=== PATIENT | male | born 1955 | race Caucasian/White ===

== ENCOUNTER 2023-02-26 09:22 | Emergency (ER) | payer OTHER, SELFPAY ==
[2023-02-26] MEDS ORDERED: NA CHLORIDE 0.9% 1,000 ML IV ONE (09:23)
[2023-02-26] MEDS ORDERED: ROCURONIUM 50 MG/5 ML VIAL IV ONE (09:23)
[2023-02-26] MEDS ORDERED: EPINEPHrine 1 MG/10 ML SYR IV ONE (09:23)
[2023-02-26] MEDS ORDERED: SUCCINYLCHOLINE 20 MG/ML (10 ML) IV ONE (09:23)
[2023-02-26] MEDS ORDERED: ETOMIDATE 20 MG/10 ML VIAL IV ONE (09:23)
[2023-02-26] MEDS ORDERED: NA CHLORIDE 0.9% 500 ML IV ONE (09:23)
[2023-02-26] MEDS ORDERED: DIAZEPAM 10 MG/2 ML INJ SYRINGE ONE (09:59)
[2023-02-26] MEDS ORDERED: NA CHLORIDE 0.9% 1,000 ML ONE (10:00)
[2023-02-26] MEDS ORDERED: MORPHINE 4 MG/ML SYR ONE (10:00)
[2023-02-26] MEDS ORDERED: KETOROLAC 30 MG/ML INJ ONE (10:00)
[2023-02-26 10:08] LABS: Absolute Lymphocytes (CBC) 2.2 K/uL (0.7-4.9); Hematocrit 47.5 % (39.6-49.0); Lymphocytes % 11.3 % (15.3-44.8); MCV 101.4 fL (80-100); MPV 8.2 fL (7.6-11.3); Platelets 197 thou/uL (152-406); RBC Red Blood Cell Count 4.69 M/uL (4.33-5.43)
[2023-02-26 10:25] LABS: Albumin 3.7 g/dL (3.4-5.0); Bilirubin Total 0.7 mg/dL (0.2-1.0); Potassium 4.1 mEq/L (3.5-5.1); Protein, Total 7.7 g/dL (6.4-8.2)
--- NOTE | 2023-02-26 10:27 | RAD REPORT ---
EXAM DESCRIPTION: CT - Abdomen Pelvis Wo Contrast - 02/26/2023 10:15 am CLINICAL HISTORY: Abdominal pain. right lower back pain COMPARISON: No comparisons TECHNIQUE: CT imaging of the abdomen and pelvis was performed without contrast. Solid organ, bowel a nd vascular assessment is limited due to lack of IV and oral contrast. All CT scans are performed using dose optimization technique as appropriate and may include automated exposure control or mA/KV adjustment according to patient size. FINDINGS: The lower lung lion are clear. The liver, spleen, pancreas, adrenal glands and kidneys are within normal limits for a limited non-co ntrast examination.19 mm benign cyst right kidney. There is extremely large infrarenal abdominal aortic aneurysm present measuring 13 cm in craniocaudad dimension and 11.2 cm in transverse dimension. There is internal crescentic hyperdensity as well as hyperdense material surrounding the aneurysm with adjacent fat stranding. No bowel obstruction, free air, free fluid or abscess. The appendix is normal. The osseous structures are within normal limits. IMPRESSION: Extremely large (13 x 11 cm) infrarenal abdominal aortic aneurysm is present with eviden ce of perianeurysmal leakage. The findings were discussed with Dr. Marshall in the ER On 02/26/2023 at 10:20 a.m. by telephone. A limited non-contrast examination was performed as detailed.
[2023-02-26] MEDS ORDERED: ESMOLOL HCL 0 ML IV ONE (10:31)
--- NOTE | 2023-02-26 10:32 | EDPHYS ---
Physician Documentation [facility] Name: Chester Green Age: 67 yrs Sex: Male : 1955 Arrival Date: 02/26/2023 Time: 09:22 Bed 19 Private MD: ED Physician Sukhdev Marshall HPI: 02/26 10:11 This 67 yrs old Male presents to ER via Ambulatory with complaints of Back Pain. ms3 10:11 67-year-old male with no past medical history presents to the emergency department for ms3 1 week of right lower back pain. Patient describes the pain as stabbing/throbbing and rates the pain a 10/10. Patient states the pain mildly radiates to his right leg. Patient states he has previously had back pain years ago. Patient denies urinary or bladder incontinence, weakness, numbness, fever, vomiting. Patient endorses nausea. Historical: - Allergies: 09:38 No Known Allergies; iw - Home Meds: 09:38 None [Active]; iw - PMHx: 09:38 None; iw - PSHx: 09:38 knee; iw - Immunization history:: Adult Immunizations not up to date. - Social history:: Smoking status: Patient reports the use of cigarette tobacco products, smokes one pack cigarettes per day. ROS: 10:11 Constitutional: Negative for fever, and chills. Neck: Negative for injury, pain, and ms3 swelling, Cardiovascular: Negative for chest pain, and palpitations. Respiratory: Negative for shortness of breath, cough, wheezing, and pleuritic chest pain, Abdomen/GI: Negative for abdominal pain, nausea, vomiting, diarrhea, and constipation, 10:11 Back: Positive for Back pain, 10:11 All other systems are negative, Exam: 10:11 Constitutional: This is a well developed, well nourished patient who is awake, alert, ms3 and in no acute distress. Head/Face: Normocephalic, atraumatic. Neck: Trachea midline, no cervical lymphadenopathy. Supple, full range of motion without nuchal rigidity, or vertebral point tenderness. No Meningismus. Chest/axilla: Normal chest wall appearance and motion. Nontender with no deformity. Cardiovascular: Regular rate and rhythm with a normal S1 and S2. No gallops, murmurs, or rubs. Normal PMI, no JVD. No pulse deficits. Respiratory: Lungs have equal breath sounds bilaterally, clear to auscultation and percussion. No rales, rhonchi or wheezes noted. No increased work of breathing, no retractions or nasal flaring. Abdomen/GI: Soft, non-tender, with normal bowel sounds. No distension or tympany. No guarding or rebound. No evidence of tenderness throughout. Skin: Warm, dry with normal turgor. Normal color with no rashes, no lesions, and no evidence of cellulitis. 10:11 Back: pain, that is severe, of the right low back, Vital Signs: 10:00 BP 108 / 60; Pulse 114; Resp 20 S; Pulse Ox 95% on R/A; iw 10:32 Weight 83.91 kg; cp4 11:01 BP 81 / 44; Pulse 118; iw Procedures: 10:45 Intubation: Ventilated with 100% NRB prior to procedure. Intubated orally using ms3 Glidescope 4 with 7.0 mm ETT. Successful on second attempt. Ventilated with Ambu bag. Tube secured with ETT ahn Placement verified by CO2 detector with (+) color change, auscultating bilateral breath sounds. 16:29 Central Line: the site was prepped with in sterile fashion, a triple lumen catheter was gb1 inserted, in the right femoral vein, in 1 attempts. placement was verified, by blood return, the site was dressed with Tegaderm, using sterile technique, the patient tolerated the procedure, well. MDM: 09:45 Patient medically screened. ms3 10:11 Differential diagnosis: Neoplasm sprain, vertebral fracture. ms3 10:31 Data reviewed: vital signs, nurses notes, radiologic studies, CT scan, and as a result, ms3 I will transfer patient. Consideration of Admission/Observation Will transfer patient. I considered the following discharge prescriptions or medication management in the emergency department Medications were administered in the Emergency Department. See MAR. Independent interpretation of the following test(s) in the Emergency Department CT Scan: My interpretation is CT abd/ pelvis without contrast images reviewed reveal large abdominal aneurysm. Historians other than the Patient: Daughter/Son: Patient's daughter. Counseling: I had a detailed discussion with the patient and/or guardian regarding the historical points, exam findings, and any diagnostic results supporting the discharge/admit diagnosis, radiology results, the need to transfer to another facility, for higher level of care. 11:46 ED course: After returning from CT patient's HR slowed and pulses were lost. See code ms3 sheet. ROSC achieved. Uncross matched blood ordered. 7.0 ETT placed at 23 cm at the teeth. Levophed ggt started with blood. Patient was accepted at [facility]. [facility] unavailable to fly patient secondary to weather. [facility] called for Emergency transfer to [facility]. Patient blood pressure remained hypotensive. Decision made to attempt transfer. On patient arrival to ambulance patient pulses were lost. Patient returned to room 19. Discussed cessation of CPR with patient's sister and 2 daughters. Patient's family agrees with Cessation of efforts. Time of 1143. 02/26 09:51 Order name: CBC with Diff; Complete Time: 10:34 ms3 02/26 09:51 Order name: CMP; Complete Time: 10:34 ms3 02/26 10:45 Order name: ABO/RH typing EDME 02/26 10:45 Order name: Antibody Screen EDME 02/26 10:45 Order name: Packed RBC Leukored EDME 02/26 10:45 Order name: RBC Leukored Pheresis EDME 02/26 11:16 Order name: ABO/RH no charge EDME 02/26 09:51 Order name: CT Abd/Pelvis - Without Contrast; Complete Time: 10:34 ms3 02/26 10:24 Order name: Angio Aorta For Dissection; Complete Time: 10:50 EDMS 02/26 09:51 Order name: IV Saline Lock; Complete Time: 09:57 ms3 02/26 09:51 Order name: Labs collected and sent; Complete Time: 09:57 ms3 Administered Medications: 10:10 Drug: morphine IVP or IV 4 mg IVP once over 4 mins Route: IVP; Infused Over: 4 mins; iw Site: right antecubital; 10:39 Follow up: Response: No adverse reaction; Pain is unchanged, physician notified; RASS: kc6 Alert and Calm (0) 10:10 Drug: Ketorolac IVP 10 mg 10 mg IVP once Route: IVP; Site: right antecubital; iw 10:39 Follow up: Response: No adverse reaction; Pain is unchanged, physician notified; RASS: kc6 Alert and Calm (0) 10:10 Drug: NS 0.9% IV 1000 ml IV at 1 bolus Per protocol; 1000 mL bolus Route: IV; Rate: 1 iw bolus; Site: right antecubital; 10:30 Follow up: Response: No adverse reaction; IV Status: Completed infusion; IV Intake: kc6 1000ml 10:10 Drug: Diazepam IVP 2 mg IVP once Route: IVP; Site: right antecubital; iw 10:25 Follow up: Response: No adverse reaction; Pain is unchanged, physician notified; RASS: kc6 Alert and Calm (0) 10:43 Drug: EPINEPHrine 1:10,000 IVP 1:10,000 1 mg IVP once Route: IVP; Site: left kc6 antecubital; 10:45 Drug: Rocuronium IVP 50 mg IVP once Route: IVP; Site: right antecubital; kc6 10:45 Drug: Etomidate IVP 20 mg IVP once Route: IVP; Site: right antecubital; kc6 10:46 Drug: Norepinephrine IV 0.1 mcg/kg/min IV at calculated rate See Administration kc6 Instructions; (Standard concentration 4 mg / 250 mL D5W); Recommended max rate 3 mcg/kg/min; Titrate 0.05 mcg/kg/min as often as every 5 minutes to achieve goal (see titration policy); Goal parameter MAP greater than 65 mmHg. Route: IV; Rate: calculated rate; Site: right femoral; 11:11 Drug: EPINEPHrine 1:10,000 IVP 1:10,000 1 mg IVP once Route: IVP; Site: left kc6 antecubital; 11:30 Drug: EPINEPHrine (PF) IV 0.01 mcg/kg/min IV at calculated rate See Administration kc6 Instructions; Standard concentration 4 mg / 250 mL D5W; Recommended max rate 2 mcg/kg/min; Titrate 0.01 mcg/kg/min as often as every 3 minutes to achieve goal [see titration policy]; Goal parameter MAP greater than 65 mmHg. Route: IV; Rate: calculated rate; Site: right femoral; 11:33 Not Given (Physician Discretion): [id number] mcg/kg/min IV at calculated rate See kc6 Administration Instructions; (Standard concentration 2500 mg / 250 mL D5W); Recommended max rate 200 mcg/kg/min; Titrate 25 mcg/kg/min as often as every 5 minutes to achieve goal (see titration policy); Goal parameter HR less than 100 bpm. 11:39 Drug: EPINEPHrine 1:10,000 IVP 1:10,000 1 mg IVP once Route: IVP; Site: right kc6 antecubital; Disposition Summary: 02/26/23 12:02 Patient Notes: Location: Home ms3 Pronouncing Physician: Sukhdev Marshall Time of : 11:43 02/26/2023 ms3 Diagnosis - Abdominal aortic aneurysm, ruptured ms3 - Cardiac arrest due to other underlying condition ms3 Critical care time excluding procedures: 12:59 Critical care time: Bedside Care: 75 minutes, Consultation: 5 minutes, Family ms3 Intervention: 20 minutes. Total time: 100 minutes Signatures: Dispatcher [employer] EDAngelic Henderson RN RN Sukhdev Marshall, DO ms3 Delia Martinez RN RN [facility] Elizabeth Mcconnell MD MD [email or web address] Corrections: (The following items were deleted from the chart) 11:56 11:46 Intubation: Ventilated with 100% NRB prior to procedure. Intubated orally using ms3 Glidescope 4 with 7.0 mm ETT. Successful on second attempt. Ventilated with Ambu bag. Tube secured with ETT han Placement verified by CO2 detector with (+) color change, auscultating bilateral breath sounds, ms3 12:01 10:32 Dr ms3 ms3 12:01 10:32 [facility] ms3 ms3 12:01 10:32 Higher level of care ms3 ms3 12:01 10:32 Stable ms3 ms3 12:01 10:32 new ms3 ms3 12:01 10:32 are unchanged ms3 ms3 12:01 10:32 Abdominal aortic aneurysm, without rupture ms3 ms3 12:01 10:32 Low back pain ms3 ms3 12:59 12:59 Critical care time: Bedside Care: 100 minutes, Consultation: 5 minutes, Family ms3 Intervention: 20 minutes. Total time: 125 minutes ms3
--- NOTE | 2023-02-26 10:32 | ER ---
Nurse's Notes [facility] Name: Chester Green Age: 67 yrs Sex: Male : 1955 Arrival Date: 02/26/2023 Time: 09:22 Bed 19 Private MD: Diagnosis: Abdominal aortic aneurysm, ruptured;Cardiac arrest due to other underlying condition Presentation: 02/26 09:36 Chief complaint: Patient states: right lower back pain started at 5 am, has hx of back iw pain but flared up this morning, was working on a garden last weekend. Coronavirus screen: At this time, the client does not indicate any symptoms associated with coronavirus-19. Ebola Screen: Patient negative for fever greater than or equal to 101.5 degrees Fahrenheit, and additional compatible Ebola Virus Disease symptoms Patient denies exposure to infectious person. Patient denies travel to an Ebola-affected area in the 21 days before illness onset. No symptoms or risks identified at this time. Risk Assessment: Do you want to hurt yourself or someone else? Patient reports no desire to harm self or others. Onset of symptoms was February 26, 2023. 09:36 Method Of Arrival: Ambulatory iw 09:36 Acuity: KRISTINA 3 iw 10:24 Acuity: KRISTINA 2 iw Historical: - Allergies: 09:38 No Known Allergies; iw - Home Meds: 09:38 None [Active]; iw - PMHx: 09:38 None; iw - PSHx: 09:38 knee; iw - Immunization history:: Adult Immunizations not up to date. - Social history:: Smoking status: Patient reports the use of cigarette tobacco products, smokes one pack cigarettes per day. Screenin:45 [facility] ED Fall Risk Assessment (Adult) History of falling in the last 3 months, iw including since admission No falls in past 3 months (0 pts) Confusion or Disorientation No (0 pts) Intoxicated or Sedated No (0 pts) Impaired Gait No (0 pts) Mobility Assist Device Used No (0 pt) Altered Elimination No (0 pt) Score/Fall Risk Level 0 - 2 = Low Risk. Abuse screen: Denies threats or abuse. Denies injuries from another. Nutritional screening: No deficits noted. Tuberculosis screening: No symptoms or risk factors identified. Assessment: 09:45 General: Appears in no apparent distress. uncomfortable, well groomed, well developed. iw Pain: Complains of pain in back and right low back Pain currently is 10 out of 10 on a pain scale. Neuro: Level of Consciousness is awake, alert, obeys commands, Oriented to person, place, time, situation, Appropriate for age. Cardiovascular: Denies chest pain, Heart tones S1 S2 present Capillary refill < 3 seconds Rhythm is sinus tachycardia. Respiratory: Airway is patent Trachea midline Respiratory effort is even, unlabored, Respiratory pattern is regular, symmetrical, Denies shortness of breath. GI: No signs and/or symptoms were reported involving the gastrointestinal system. : No signs and/or symptoms were reported regarding the genitourinary system. EENT: No signs and/or symptoms were reported regarding the EENT system. Derm: No signs and/or symptoms reported regarding the dermatologic system. Skin is intact, is healthy with good turgor, Skin is diaphoretic, Skin is normal, Skin temperature is warm. Musculoskeletal: No signs and/or symptoms reported regarding the musculoskeletal system. Circulation, motion, and sensation intact. Capillary refill < 3 seconds, Range of motion: intact in all extremities. 10:40 Reassessment: pt is decompensating. BP and HR dropped. Dr. Marshall notified and at [facility] bedside. code gibran called, CPR initiated. 10:42 Reassessment: pt is in PEA. kc6 10:52 Reassessment: 1st unit of blood started and infusing per mass transfusion protocol. kc6 10:55 Reassessment: 2nd unit of blood started and infusing. kc6 10:56 Reassessment: pt blood banded. kc6 11:13 Reassessment: 3rd unit of blood started and infusing. kc6 11:15 Reassessment: 4th unit of blood started and infusing. kc6 11:18 Reassessment: pt transferred to EMS stretcher. kc6 11:37 Reassessment: pt returned from EMS truck. EMS states pt coded just before leaving. CPR kc in progress, joaquin leary called. 11:43 Reassessment: Dr. Marshall at bedside with ultrasound, asystole. TOD called. [facility] Vital Signs: 10:00 BP 108 / 60; Pulse 114; Resp 20 S; Pulse Ox 95% on R/A; iw 10:32 Weight 83.91 kg; cp4 11:01 BP 81 / 44; Pulse 118; iw ED Course: 09:24 Patient arrived in ED. rg4 09:26 Sukhdev Marshall DO is Attending Physician. ms3 09:[address], RN is Primary Nurse. iw 09:38 Triage completed. iw 09:38 Arm band placed on. iw 09:45 Patient has correct armband on for positive identification. Placed in gown. Bed in low iw position. Call light in reach. Side rails up X2. Adult w/ patient. Client placed on continuous cardiac and pulse oximetry monitoring. NIBP monitoring applied. intelligence chief on. 09:45 Inserted saline lock: 20 gauge in right antecubital area, using aseptic technique. iw Blood collected. Patient maintains SpO2 saturation greater than 95% on room air. 10:17 CT Abd/Pelvis - Without Contrast In Process Unspecified. EDMS 10:32 Inserted saline lock: 18 gauge in left antecubital area, using aseptic technique. iw 10:34 Angio Aorta For Dissection In Process Unspecified. EDMS 10:46 Assisted provider with central line placement. Set up central line tray. Triple lumen kc6 line placed in right femoral. Line placed by Sukhdev Marshall DO Placement verified by blood return, Dressed with 4X4s, Tape, Tegaderm, Patient tolerated well. Was handwashing/sanitizing done immediately prior to procedure? Yes. Was patient positioned to in a way to prevent air embolism? Yes. Was procedure site sterilized? Yes, with Was the site allowed to dry? Yes. Was local anesthetic and/or sedation utilized? Yes. During the procedure, did the Practitioner(s) maintain a sterile field? Yes. Were unused ports clamped during insertion? Yes. Was a 2nd qualified MD obtained after 3 unsuccessful insertion attempts? No. Was blood aspirated from each lumen? Yes. After the procedure, did the Practitioner(s) clean the site and apply a sterile dressing? Yes. 10:49 Assisted provider with intubation using 7.0 mm ETT via oral route. ET tube secured at kc6 23cm at the teeth. Set up intubation tray. Intubated by Sukhdev Marshall DO Placement verified by CO2 detector w/ + color change, auscultating bilateral breath sounds, Patient tolerated well. 10:56 Ho cath inserted, using sterile technique, 18 Fr., by insole buffer, balloon inflated, to kc6 gravity drainage, clamped. returned clear yellow urine. Patient tolerated well. 11:54 Diet: contacted [facility]J to notify chair mechanic of pts passing.. bd 12:01 Sukhdev Marshall DO is Pronouncing Provider. ms3 Administered Medications: 10:10 Drug: morphine IVP or IV 4 mg IVP once over 4 mins Route: IVP; Infused Over: 4 mins; iw Site: right antecubital; 10:39 Follow up: Response: No adverse reaction; Pain is unchanged, physician notified; RASS: kc6 Alert and Calm (0) 10:10 Drug: Ketorolac IVP 10 mg 10 mg IVP once Route: IVP; Site: right antecubital; iw 10:39 Follow up: Response: No adverse reaction; Pain is unchanged, physician notified; RASS: kc6 Alert and Calm (0) 10:10 Drug: NS 0.9% IV 1000 ml IV at 1 bolus Per protocol; 1000 mL bolus Route: IV; Rate: 1 iw bolus; Site: right antecubital; 10:30 Follow up: Response: No adverse reaction; IV Status: Completed infusion; IV Intake: kc6 1000ml 10:10 Drug: Diazepam IVP 2 mg IVP once Route: IVP; Site: right antecubital; iw 10:25 Follow up: Response: No adverse reaction; Pain is unchanged, physician notified; RASS: kc6 Alert and Calm (0) 10:43 Drug: EPINEPHrine 1:10,000 IVP 1:10,000 1 mg IVP once Route: IVP; Site: left kc6 antecubital; 10:45 Drug: Rocuronium IVP 50 mg IVP once Route: IVP; Site: right antecubital; kc6 10:45 Drug: Etomidate IVP 20 mg IVP once Route: IVP; Site: right antecubital; kc6 10:46 Drug: Norepinephrine IV 0.1 mcg/kg/min IV at calculated rate See Administration kc6 Instructions; (Standard concentration 4 mg / 250 mL D5W); Recommended max rate 3 mcg/kg/min; Titrate 0.05 mcg/kg/min as often as every 5 minutes to achieve goal (see titration policy); Goal parameter MAP greater than 65 mmHg. Route: IV; Rate: calculated rate; Site: right femoral; 11:11 Drug: EPINEPHrine 1:10,000 IVP 1:10,000 1 mg IVP once Route: IVP; Site: left kc6 antecubital; 11:30 Drug: EPINEPHrine (PF) IV 0.01 mcg/kg/min IV at calculated rate See Administration kc6 Instructions; Standard concentration 4 mg / 250 mL D5W; Recommended max rate 2 mcg/kg/min; Titrate 0.01 mcg/kg/min as often as every 3 minutes to achieve goal [see titration policy]; Goal parameter MAP greater than 65 mmHg. Route: IV; Rate: calculated rate; Site: right femoral; 11:33 Not Given (Physician Discretion): [id number] mcg/kg/min IV at calculated rate See kc6 Administration Instructions; (Standard concentration 2500 mg / 250 mL D5W); Recommended max rate 200 mcg/kg/min; Titrate 25 mcg/kg/min as often as every 5 minutes to achieve goal (see titration policy); Goal parameter HR less than 100 bpm. 11:39 Drug: EPINEPHrine 1:10,000 IVP 1:10,000 1 mg IVP once Route: IVP; Site: right kc6 antecubital; Intake: 10:30 IV: 1000ml; Total: 1000ml. kc6 Outcome: 10:32 ER care complete, transfer ordered by MD. herbert 11:43 Patient : Time of 11:43 Pronounced by Sukhdev Muir 11:43 Condition: 14:14 Patient left the ED. 6 Signatures: Dispatcher [employer] EDMS Nannette Orr Irene, RN RN iw Garcia, Rubi rg4 Sims, Marcus, DO DO ms3 Delia Martinez RN RN kc6 Potter, Christina cp4 Corrections: (The following items were deleted from the chart) 11:02 11:01 BP 81 / 44; iw mildred
--- NOTE | 2023-02-26 10:47 | RAD REPORT ---
EXAM DESCRIPTION: CT - Angio Aorta For Dissection - 02/26/2023 10:32 am CLINICAL HISTORY: Chest pain radiating to the back. right flank pain COMPARISON: No comparisons TECHNIQUE: CT angiography of the aorta was performed with MIPs. All CT scans are performed using dose optimization technique as appropriate and may include automated exposure control or mA/KV adjustment according to patient size. FINDINGS: There is a very large infrarenal aortic aneurysm present measuring 11 cm in transverse dim ension. There is irregular intramural thrombus mixed with contrast material present. Contrast is seen extending into the venous system along the right aspect of the aneurysm into the IVC likely indicati ng direct communication between the aneurysm and the inferior vena cava. 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 Ectatic appearance of both common iliac arteries is present. No evidence of pulmonary embolism. Severe COPD. The liver demonstrates no focal mass or biliary dilatation.The spleen, pancreas, adrenal glands and k idneys are within normal limits for arterial phase imaging. No bowel obstruction, free fluid or abscess.No pathologic enlarged lymphadenopathy identified. Mild lumbar degenerative changes. 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
[2023-02-26] MEDS ORDERED: NOREPINEPHRINE BITARTRATE/D5W 4 MG/250 ML BAG IV ONE (10:48)
[2023-02-26] MEDS ORDERED: NOREPINEPHRINE 4 MG/4 ML VIAL ONE (10:48)
[2023-02-26] MEDS ORDERED: ESMOLOL HCL IV ONE (11:00)
[2023-02-26] MEDS ORDERED: D5W IV ONE (11:00)
[2023-02-26] MEDS ORDERED: EPINEPHrine 4 MG in NA CHLORIDE 0.9% 250 ML IV SCH (11:30)
[2023-02-26 15:08] VITALS: BP 81/44; O2SAT 95
== END 2023-02-26 14:14 | disposition expired ==
LOC: ER 09:22
PROC: 06HM33Z Insertion of Infusion Device into Right Femoral Vein, Percutaneous Approach (ICD-10-PCS; principal; 2023-02-26)
PROC: 30233N1 Transfusion of Nonautologous Red Blood Cells into Peripheral Vein, Percutaneous Approach (ICD-10-PCS; 2023-02-26)
DX: I71.30 Abdominal aortic aneurysm, ruptured, unspecified (principal); I46.8 Cardiac arrest due to other underlying condition; F17.210 Nicotine dependence, cigarettes, uncomplicated
CPT/HCPCS: 85025; 36415; 86900; 86850; 86901; 86920 ×4; 80053; 71275; 74175; 74176; 31500; 51702; 99291; 94002; 36556; 36430; Q9967; J3360; J0171 ×2; P9016 ×4; J7050; J7040; J7030 ×2